=== PATIENT | male | born 1990 | race Caucasian/White ===

== ENCOUNTER 2022-07-10 11:07 | Emergency (ER) | payer MEDICAID ==
[~2022-07-10] VITALS: Ht 180.3 cm; Wt 61.7 kg
[2022-07-10 11:30] VITALS: BP 102/54
[2022-07-10] MEDS ORDERED: IBUP-1955 PO (12:59)
== END 2022-07-10 13:09 | disposition home or self-care (01) ==
LOC: ER 11:14
DX: S83.92XA Sprain of unspecified site of left knee, initial encounter (principal); Z60.2 Problems related to living alone; Z79.899 Other long term (current) drug therapy; W01.0XXA Fall on same level from slipping, tripping and stumbling without subsequent striking against object, initial encounter; Y93.89 Activity, other specified; Y92.89 Other specified places as the place of occurrence of the external cause; Y99.8 Other external cause status
CPT/HCPCS: 73564-TC